=== PATIENT | female | born 1980 | race Caucasian/White ===

== ENCOUNTER → 2016-12-27 | Outpatient (CLI) | payer OTHER ==
[~2016-12-27] MED LIST: BIRTH CONTROL PILL; CELEXA10 MG PO; LEVAQUIN 5500 MG/TA1 PO; NAPROSYN500 MG PO; NORCO 325 MG-51 TAB PO; PHENERGAN 25 TA25 MG PO; PREDNISONE20 MG PO; TRINESSA1 TAB PO; ZOVIRAX400 MG PO
== END ==
LOC: COL.RAD 15:24
DX: M79.89 Other specified soft tissue disorders (principal)

== ENCOUNTER → 2016-12-28 | Outpatient (CLI) | payer OTHER | LOC: COL.LAB 16:24 | DX: M79.89 Other specified soft tissue disorders (principal); R06.02 Shortness of breath ==

== ENCOUNTER → 2017-04-20 | Outpatient (CLI) | payer OTHER | LOC: COL.VAS 13:59 | DX: M79.661 Pain in right lower leg (principal); Z86.711 Personal history of pulmonary embolism ==

== ENCOUNTER 2017-08-27 21:44 | Emergency (ER) | payer BC ==
[~2017-08-27] VITALS: Ht 167.6 cm; Wt 104.5 kg
[2017-08-27 21:47] VITALS: BP 140/94; TEMP 98.4
[2017-08-27] MEDS ORDERED: DOXYCYCLINE 10100 MG PO (21:52)
[2017-08-27] MEDS ORDERED: RITALIN10 MG PO (21:52)
[2017-08-27] MEDS ORDERED: WELLBUTRIN SR200 MG PO (21:53)
[2017-08-27] MEDS ORDERED: XOPENEX HF0.045 MG/A IH (21:53)
[2017-08-27 22:38] LABS: BASO # 0.1 (0.0-0.2); BASO % 0.5 % (0.0-2.0); EOS % 0.1 % (0-4.0); GRAN % 74.2 % (42.2-75.2); HEMOGLOBIN 12.7 g/dl (12.5-16.0); LYMPH # 2.1 (1.2-3.4); LYMPH % 19.8 % (20.0-51.0); MEAN CELL VOLUME 88 fl (80.0-100.0); MEAN CORPUSCULAR HEMOGLOBIN 31 pg (27.0-31.0); MEAN CORPUSCULAR HGB CONC 35 g/dl (33.0-37.0); MEAN PLATELET VOLUME 9.4 fl (7.4-10.4); MONO # 0.5 (0.1-0.6); MONO % 4.7 % (1.7-9.3); PLATELET COUNT 266 K/mm3 (130-400); RED BLOOD COUNT 4.17 M/mm3 (4.10-5.30); WHITE BLOOD COUNT 10.8 K/mm3 (4.8-10.8)
[2017-08-27 22:45] LABS: HEMATOCRIT 36.5 % (37.0-47.0)
[2017-08-27 22:54] LABS: ADJUSTED CALCIUM 9.3 mg/dL (8.4-10.2); ALANINE AMINOTRANSFERASE 26 U/L (9-52); ALBUMIN 4.2 gm/dL (3.5-5.0); ALKALINE PHOSPHATASE 100 U/L (50-136); ANION GAP 11 mmol/L (7-16); BILIRUBIN,TOTAL 0.6 mg/dL (0.0-1.0); BLOOD UREA NITROGEN 10 mg/dL (7-17); CALCIUM 9.5 mg/dL (8.4-10.2); CARBON DIOXIDE 21 mmol/L (22-30); CHLORIDE 106 mmol/L (98-107); CREATININE, serum 0.76 mg/dL (0.52-1.25); GLUCOSE 122 mg/dL (74-106); SODIUM 139 mmol/L (137-145); TOTAL PROTEIN 7.4 gm/dL (6.4-8.2)
[2017-08-27 23:06] LABS: B-TYPE NATRIURETIC PEPTIDE 16 pg/mL (0-125); TROPONIN-I < 0.012 ng/mL (0.000-0.034)
[2017-08-27 23:58] VITALS: PULSE 84
== END 2017-08-28 | disposition home or self-care (01) ==
LOC: COL.ER 21:44
PROVIDERS: Emergency Medicine
DX: J45.909 Unspecified asthma, uncomplicated (principal); J20.9 Acute bronchitis, unspecified
CPT/HCPCS: Q9967

== ENCOUNTER → 2018-04-11 | Outpatient (CLI) | payer BC ==
[~2018-04-11] MED LIST changes: +DOXYCYCLINE 10100 MG PO; +RITALIN10 MG PO; +WELLBUTRIN SR200 MG PO; +XOPENEX HF0.045 MG/A IH
== END ==
LOC: COL.VAS 13:06
DX: M79.89 Other specified soft tissue disorders (principal); M79.661 Pain in right lower leg

== ENCOUNTER 2018-11-25 19:28 | Emergency (ER) | payer BC ==
[~2018-11-25] VITALS: Ht 165.1 cm; Wt 113.6 kg
[2018-11-25] MEDS ORDERED: MIRENA52 MG IY (20:06)
[2018-11-25 21:33] LABS: BASO % 0.5 % (0.0-2.0); EOS % 0.6 % (0-4.0); GRAN % 78.8 % (42.2-75.2); HEMATOCRIT 41.1 % (37.0-47.0); HEMOGLOBIN 14.4 g/dl (12.5-16.0); LYMPH # 0.8 (1.2-3.4); LYMPH % 12.1 % (20.0-51.0); MEAN CELL VOLUME 87 fl (80.0-100.0); MEAN CORPUSCULAR HEMOGLOBIN 30 pg (27.0-31.0); MEAN CORPUSCULAR HGB CONC 35 g/dl (33.0-37.0); MEAN PLATELET VOLUME 9.1 fl (7.4-10.4); MONO # 0.5 (0.1-0.6); MONO % 7.7 % (1.7-9.3); PLATELET COUNT 174 K/mm3 (130-400); RED BLOOD COUNT 4.75 M/mm3 (4.10-5.30); REDCELL DISTRIBUTION WIDTH-CV 12.2 % (11.5-14.5)
[2018-11-25 21:42] LABS: ALBUMIN 4.3 gm/dL (3.5-5.0); BILIRUBIN,TOTAL 1.2 mg/dL (0.0-1.0); CALCIUM 9.1 mg/dL (8.4-10.2); CREATININE, serum 0.75 mg/dL (0.52-1.25); POTASSIUM 3.7 mmol/L (3.4-5.0); TOTAL PROTEIN 7.8 gm/dL (6.4-8.2)
[2018-11-25 23:53] LABS: COLLECTION METHOD CLEAN CATCH
[2018-11-26 00:01] LABS: MUCOUS Present /lpf; PH 5 (5-8); URINE APPEARANCE Clear; URINE BACTERIA None Seen /hpf; URINE BILIRUBIN Negative (NEGATIVE); URINE BLOOD 1+ (NEGATIVE); URINE COLOR Yellow; URINE GLUCOSE Negative (NEGATIVE); URINE KETONE 2+ (NEGATIVE); URINE LEUKOCYTE ESTERASE Negative (NEGATIVE); URINE NITRATE Negative (NEGATIVE); URINE PROTEIN(semi-quant) Negative (NEGATIVE); URINE UROBILINOGEN Negative (NEGATIVE)
[2018-11-26 00:36] VITALS: BP 137/85; PULSE 92; TEMP 99.9
== END 2018-11-26 00:45 | disposition home or self-care (01) ==
LOC: COL.ER 19:28
PROVIDERS: Emergency Medicine
DX: R19.7 Diarrhea, unspecified (principal); R11.2 Nausea with vomiting, unspecified; J45.909 Unspecified asthma, uncomplicated; Z98.890 Other specified postprocedural states
CPT/HCPCS: J2765; J3010; J7030; Q9967

== ENCOUNTER → 2020-02-20 | Outpatient (CLI) | payer BC, OTHER ==
[~2020-02-20] MED LIST changes: +MIRENA52 MG IY
== END ==
LOC: COL.LAB 19:15 → ZCOL.LAB 19:15
DX: R25.2 Cramp and spasm (principal); Z86.718 Personal history of other venous thrombosis and embolism

== ENCOUNTER → 2020-02-21 | Outpatient (CLI) | payer BC, OTHER | LOC: COL.VAS 09:24 | DX: M79.604 Pain in right leg (principal); M79.605 Pain in left leg ==

== ENCOUNTER 2021-07-27 21:27 | Observation (INO) | payer BC, OTHER ==
[~2021-07-27] VITALS: Ht 167.6 cm; Wt 108.9 kg
[~2021-07-27 21:27] MED LIST changes: -WELLBUTRIN SR200 MG PO; +WELLBUTRIN XL300 M1 PO
[2021-07-27 22:45] LABS: BASO # 0.1 (0.0-0.2); BASO % 0.8 % (0.0-2.0); EOS # 0.2 (0.0-0.7); EOS % 3.2 % (0-4.0); GRAN # 3.8 (1.4-6.5); GRAN % 51.9 % (42.2-75.2); HEMATOCRIT 38.9 % (37.0-47.0); HEMOGLOBIN 13.2 g/dl (12.5-16.0); LYMPH # 2.6 (1.2-3.4); LYMPH % 36.1 % (20.0-51.0); MEAN CELL VOLUME 90 fl (80.0-100.0); MEAN CORPUSCULAR HEMOGLOBIN 31 pg (27.0-31.0); MEAN CORPUSCULAR HGB CONC 34 g/dl (33.0-37.0); MEAN PLATELET VOLUME 8.8 fl (7.4-10.4); MONO # 0.6 (0.1-0.6); MONO % 7.7 % (1.7-9.3); PLATELET COUNT 249 K/mm3 (130-400); RED BLOOD COUNT 4.32 M/mm3 (4.10-5.30); REDCELL DISTRIBUTION WIDTH-CV 12.5 % (11.5-14.5)
[2021-07-27 22:54] LABS: COLLECTION METHOD CLEAN CATCH
[2021-07-27 23:00] LABS: ALANINE AMINOTRANSFERASE 25 U/L (4-34); ALBUMIN 4.7 gm/dL (3.5-5.0); ALKALINE PHOSPHATASE 83 U/L (50-136); ANION GAP 9 mmol/L (7-16); AST,SGOT 29 U/L (15-37); BILIRUBIN,TOTAL 0.9 mg/dL (0.0-1.0); BLOOD UREA NITROGEN 14 mg/dL (7-17); CALCIUM 9.6 mg/dL (8.4-10.2); CARBON DIOXIDE 23 mmol/L (22-30); CHLORIDE 106 mmol/L (98-107); GLUCOSE 111 mg/dL (74-106); LIPASE 80 U/L (23-300); POTASSIUM 4.1 mmol/L (3.4-5.0); SODIUM 138 mmol/L (137-145)
[2021-07-27 23:01] LABS: C-REACTIVE PROTEIN < 0.5 mg/dL (0.0-0.9)
[2021-07-27 23:21] LABS: MUCOUS Present /lpf; PH 5 (5-8); SQUAMOUS EPITHELIAL 20-50 /hpf; URINE APPEARANCE Cloudy; URINE BACTERIA Rare /hpf; URINE BILIRUBIN Negative (NEGATIVE); URINE BLOOD 2+ (NEGATIVE); URINE COLOR Amber; URINE GLUCOSE Negative (NEGATIVE); URINE KETONE Negative (NEGATIVE); URINE LEUKOCYTE ESTERASE Negative (NEGATIVE); URINE NITRATE Positive (NEGATIVE); URINE PROTEIN(semi-quant) 1+ (NEGATIVE); URINE RBC >50 /hpf; URINE UROBILINOGEN >=4.0 mg/dL (NEGATIVE)
[2021-07-28] MEDS ORDERED: ATIVAN 0.50.5 MG/TAB PO (07:11)
[2021-07-28 08:17] VITALS: BP 130/75; PULSE 58; TEMP 98.1
--- NOTE | 2021-07-28 10:12 | NUR ---
Initial visit; Patient thanked Commercial Real Estate Sales Manager for looking in on her this morning and offering to keep her in Commercial Real Estate Sales Manager's prayers.
--- NOTE | 2021-07-28 10:30 | NUR ---
PATIENT OFF FLOOR TO OR. CONSENT ON CHART.
--- NOTE | 2021-07-28 10:39 | NUR ---
IRINEO met with the patient to discuss discharge plan. The patient lives in [place] with her four children. She states that her youngest child is [id number]. She reports independence with ADLs and does not have any DME. The patient's PCP is Dr. Kasia Main and she receives her medications from [facility]. She reports no difficulties obtaining her meds. The patient does not have a DPOA-HC. The patient states that she is from her , but they are not . She has three children over the age of 18: Anil, Julissa, and Conner. IRINEO informed the patient that her would be her legal next of kin, since they are not . The patient verbalized understanding. She states that she would not want him to make any decisions for her and would want her mother, Concepción (ph#[phone]), as her decision maker. IRINEO informed her that she would need to complete a DPOA-HC, designating her mother and that we could complete the form here. The patient was not interested in completing a DPOA-HC at this time, but states that she will take a form. IRINEO provided. The patient plans to return home with her children upon discharge. No additional needs at this time. *Discharge plan: home with children*
[2021-07-28] MEDS ORDERED: PYRIDIUM 100MG100 MG PO (11:56)
[2021-07-28] MEDS ORDERED: LEVAQUIN 5500 MG/TA1 PO (11:56)
[2021-07-28] MEDS ORDERED: NORCO 325 MG-51 TAB PO (11:57)
[2021-07-28 12:40] VITALS: BP 125/67; PULSE 64; TEMP 99
--- NOTE | 2021-07-28 12:40 | NUR ---
PATIENT BACK FROM SURGERY, LEFT STENT PLACED, NO STONE FOUND. PATIENT RESTING UP IN BED WITH NO COMPLAINTS AND IS VERY DROWSY. VSS. HEAD TO TOE ASSESSMENT WNL. CALL LIGHT IN REACH. PATIENT TO DISCHARGE LATER TODAY.
[2021-07-28 12:55] VITALS: BP 124/74; PULSE 64
[2021-07-28 13:05] VITALS: TEMP 99
[2021-07-28 13:10] VITALS: BP 134/68; PULSE 62
--- NOTE | 2021-07-28 16:15 | NUR ---
PATIENT STILL C/O A SEVER PAIN IN LEFT FLANK THAT IS UNRELIEVED FROM ROXICODONE. PATIENT REFUSED TYLENOL. NOTIFIED UROLOGY. IN OR, PATIENT HAD ALREADY PASSED STONE BUT DID HAVE SWELLING AND IRRITATION. SEE ORDERS FOR NOW DOSE OF IV TORADOL.
--- NOTE | 2021-07-28 17:45 | NUR ---
PATIENT DISCHARGING HOME VIA WC TO PERSONAL VEHICLE WITH MOTHER. GAVE DISCHARGE INSTRUCTIONS, E-SCRIPTS SENT, AND DISCUSSED F/U APT. ANSWERED QUESTIONS/CONCERNS. DC'D RIGHT AC IV AND COVERED SITE WITH GAUZE & COBAN. PATIENT IS DRESSED, PACKED & DISCHARGED.
== END 2021-07-28 17:45 | disposition home or self-care (01) ==
LOC: COL.ER 21:27 → SURG 07-28 01:01
PROVIDERS: Nurse Practitioner Primary Care; ADMIT Urology
DX: N13.2 Hydronephrosis with renal and ureteral calculous obstruction (principal); J45.909 Unspecified asthma, uncomplicated; F90.9 Attention-deficit hyperactivity disorder, unspecified type; F32.9 Major depressive disorder, single episode, unspecified; F41.9 Anxiety disorder, unspecified; Z79.899 Other long term (current) drug therapy
CPT/HCPCS: C1769; C2617; G0378; J0690; J0696; J1100; J1885; J2270; J2405; J2550; J2704; J3010; J7030; Q9967

== ENCOUNTER 2021-08-07 16:01 | Observation (INO) | payer BC, OTHER ==
[~2021-08-07] VITALS: Ht 167.6 cm; Wt 109.1 kg
[~2021-08-07 16:01] MED LIST changes: +ATIVAN 0.50.5 MG/TAB PO; +PYRIDIUM 100MG100 MG PO
[2021-08-07 18:05] LABS: COLLECTION METHOD CLEAN CATCH
[2021-08-07 18:07] LABS: BASO # 0.1 (0.0-0.2); BASO % 0.8 % (0.0-2.0); EOS # 0.2 (0.0-0.7); GRAN # 5.1 (1.4-6.5); GRAN % 65.3 % (42.2-75.2); HEMOGLOBIN 12.7 g/dl (12.5-16.0); LYMPH # 1.8 (1.2-3.4); LYMPH % 23.1 % (20.0-51.0); MEAN CELL VOLUME 87 fl (80.0-100.0); MEAN CORPUSCULAR HEMOGLOBIN 30 pg (27.0-31.0); MEAN CORPUSCULAR HGB CONC 35 g/dl (33.0-37.0); MEAN PLATELET VOLUME 8.8 fl (7.4-10.4); MONO # 0.6 (0.1-0.6); MONO % 7.5 % (1.7-9.3); PLATELET COUNT 251 K/mm3 (130-400); RED BLOOD COUNT 4.18 M/mm3 (4.10-5.30)
[2021-08-07 18:13] LABS: HEMATOCRIT 36.4 % (37.0-47.0)
[2021-08-07 18:20] LABS: MUCOUS Present /lpf; PH 6 (5-8); URINE APPEARANCE Hazy; URINE BACTERIA Rare /hpf; URINE BILIRUBIN Negative (NEGATIVE); URINE BLOOD 3+ (NEGATIVE); URINE COLOR Yellow; URINE GLUCOSE Negative (NEGATIVE); URINE KETONE Negative (NEGATIVE); URINE LEUKOCYTE ESTERASE 2+ (NEGATIVE); URINE NITRATE Negative (NEGATIVE); URINE PROTEIN(semi-quant) Negative (NEGATIVE); URINE RBC 0-2 /hpf; URINE UROBILINOGEN Negative (NEGATIVE)
[2021-08-07 18:34] LABS: C-REACTIVE PROTEIN 0.3 mg/dL (0.00-0.50); CALCIUM 9.2 mg/dL (8.4-10.2); CREATININE, serum 1.08 mg/dL (0.57-1.11); POTASSIUM 3.9 mmol/L (3.5-4.5); TOTAL PROTEIN 7.3 gm/dL (6.2-8.1)
[2021-08-07 18:49] LABS: BILIRUBIN,TOTAL 0.7 mg/dL (0.2-1.2)
[2021-08-07] MEDS ORDERED: LEVAQUIN 5500 MG/TA1 PO (21:49)
[2021-08-07] MEDS ORDERED: PERCOCET 325 MG1 TA2 PO (21:50)
[2021-08-07] MEDS ORDERED: MOTRIN 600600 MG/TAB PO (21:51)
--- NOTE | 2021-08-07 22:15 | NUR ---
PT UP TO VOID, 200CC YELLOW URINE. AMBULATES IN HALLWAY WITH STEADY GAIT, DENIES PAIN. HAS TAKEN ICE CHIPS, JUICE AND JELLO WITHOUT NAUSEA OR VOMITING. WANTS TO GO HOME.
--- NOTE | 2021-08-07 22:32 | NUR ---
SPOKE WITH LALA HUNT FOR PT TO DISCHARGE HOME TONIGHT.
[2021-08-07 23:10] VITALS: BP 142/79; PULSE 64; TEMP 98.5
--- NOTE | 2021-08-07 23:10 | NUR ---
PT ADMITTED TO ROOM 343 FROM PACU FOR POST OP LAP APPY. O2 AT 2LNC. PAIN EVEL 05/16 SEE MAR FOR PAIN MED GIVEN. ASSISTED TO BSC TO VOID. BACK TO BED. VSS. CALL LIGHT IN REACH.
[2021-08-07 23:20] VITALS: BP 145/87; PULSE 59
[2021-08-07 23:35] VITALS: BP 146/79; PULSE 61
[2021-08-07 23:45] VITALS: BP 134/79; PULSE 59
[2021-08-08] VITALS (9 sets, daily range): BP systolic 116–157; BP diastolic 61–78; PULSE 58–70; TEMP 97.6–99.4
--- NOTE | 2021-08-08 00:30 | NUR ---
GAVE DILAUDID FOR ABD INCIASIONAL PAIN. LEVEL 7/10
--- NOTE | 2021-08-08 00:36 | NUR ---
RESTING NOW. NO DISTRESS.
--- NOTE | 2021-08-08 01:49 | NUR ---
PT AWAKE AT MY PRESENCE. PT ASKING WHEN DILAUDID IS GOING TO START WORKING. VERY DROWSY. HAS BEEN UP TO BSC X2 SINCE RETURN FROM PACU TO VOID. NO NAUSEA. TOO SOON FOR MORE DILAUDID. SCD'D ON.
--- NOTE | 2021-08-08 03:38 | NUR ---
PT RESTING QUIETLY. NO DISTRESS AT THIS TIME. VSS.
--- NOTE | 2021-08-08 08:00 | NUR ---
Patient in bed resting. Alert and oriented x 3. Assessment complete. Stated pain to incision sites /, medications given per orders. Patient up to restroom with steady gait, educated on splinting incision. Lap sites x 3 with edges well approximated. Patient denies additional needs at this time.
--- NOTE | 2021-08-08 10:26 | NUR ---
Patient up with SBA ambulating in halls >100 ft
--- NOTE | 2021-08-08 13:24 | NUR ---
Patient states she is having mild nausea after ambulating in room. Medications given per orders. Denies additional needs at this time.
[2021-08-08 13:40] LABS: BASO % 0.2 % (0.0-2.0); EOS % 0.1 % (0-4.0); GRAN # 9.3 (1.4-6.5); GRAN % 83.4 % (42.2-75.2); HEMATOCRIT 33.3 % (37.0-47.0); LYMPH % 9.4 % (20.0-51.0); MEAN CELL VOLUME 86 fl (80.0-100.0); MEAN CORPUSCULAR HEMOGLOBIN 31 pg (27.0-31.0); MEAN CORPUSCULAR HGB CONC 36 g/dl (33.0-37.0); MEAN PLATELET VOLUME 8.9 fl (7.4-10.4); MONO # 0.7 (0.1-0.6); MONO % 6.5 % (1.7-9.3); PLATELET COUNT 274 K/mm3 (130-400); RED BLOOD COUNT 3.86 M/mm3 (4.10-5.30)
[2021-08-08 14:20] LABS: ALBUMIN 3.8 gm/dL (3.5-5.0); BILIRUBIN,TOTAL 0.7 mg/dL (0.2-1.2); CALCIUM 9.2 mg/dL (8.4-10.2); CREATININE, serum 0.75 mg/dL (0.57-1.11); POTASSIUM 3.9 mmol/L (3.5-4.5)
--- NOTE | 2021-08-08 14:22 | NUR ---
Plan is to return home. Patient reports that she has a DTR who will support her recovery. Patient shares that her mother Concepción is her EMR contact . Patient reports that her PCP is Dr. Salazar and obtains medications at [facility]. Patient shares that she also see Dr. Polanco. Patient reports that her pain is at a 5 out of 10. Educated on services available through case management. Patient reports that she wants to have pain managament discussed and having a bowel movement as she feels nothing is moving. WF
--- NOTE | 2021-08-08 18:19 | NUR ---
Patient doing well throughout the day. Encouraged increase activity. Pain medications given for abdominal pain 7/10 throughout the day, per orders. Patient denies needs at this time; tolerating diet. Denies further needs at this time.
[2021-08-09] VITALS: BP 117/64; PULSE 52; TEMP 98.2
[2021-08-09 03:42] VITALS: BP 106/62; PULSE 55; TEMP 97.7
--- NOTE | 2021-08-09 04:56 | NUR ---
PT CALLS FOR ASSISTANCE TO GET IN AND OUT OF BED TO USE RESTROOM, WALKED IN MOY X1 THIS SHIFT, REPORTS PAIN 8/10, PERCOCET GIVEN X2. PHENERGAN GIVEN X1 FOR REPORTED NAUSEA.
[2021-08-09 08:56] VITALS: BP 119/72; PULSE 50; TEMP 98.5
--- NOTE | 2021-08-09 10:00 | NUR ---
Patient alert and oriented, answers questions appropriately. See assessment. Abdomen soft, tender, non distended. Bowel sounds active x4 quads. +Flatus. +Bowel movement. Lap sites to abdomen with edges well approximated, no redness or drainage noted. Post op exercises reviewed with patient. Patient needs encouragement to ambulate in halls, get out of bed. No other c/o at this time.
[2021-08-09] MEDS ORDERED: ZOFRAN ODT4 MG PO (10:45)
[2021-08-09] MEDS ORDERED: PROMETHAZINE12.5 M5 PO (10:45)
[2021-08-09] MEDS ORDERED: LEVAQUIN 5500 MG/TA1 PO (10:49)
[2021-08-09] MEDS ORDERED: Work Release (10:59)
[2021-08-09 11:17] VITALS: BP 139/73; PULSE 76; TEMP 99.1
--- NOTE | 2021-08-09 13:43 | NUR ---
Discharge instructions reviewed with patient, verbalized understanding. Discharged via wheelchair to auto/home with parent at 1300.
== END 2021-08-09 13:00 | disposition home or self-care (01) ==
LOC: COL.ER 16:01 → SURG 19:42
PROVIDERS: Nurse Practitioner Primary Care; ADMIT Surgery
DX: K35.80 Unspecified acute appendicitis (principal); J45.909 Unspecified asthma, uncomplicated; N39.0 Urinary tract infection, site not specified; G43.909 Migraine, unspecified, not intractable, without status migrainosus; F90.9 Attention-deficit hyperactivity disorder, unspecified type; F41.9 Anxiety disorder, unspecified; Z79.891 Long term (current) use of opiate analgesic; Z79.899 Other long term (current) drug therapy
CPT/HCPCS: G0378; J1100; J1170; J1885; J2405; J2550; J2704; J3010; J7030; J7120; Q9967

== ENCOUNTER 2021-08-25 12:56 | Emergency (ER) | payer BC, OTHER ==
[~2021-08-25] VITALS: Ht 167.6 cm; Wt 109.1 kg
[~2021-08-25 12:56] MED LIST changes: +MOTRIN 600600 MG/TAB PO; +PERCOCET 325 MG1 TA2 PO; +PROMETHAZINE12.5 M5 PO; +Work Release; +ZOFRAN ODT4 MG PO
[2021-08-25 13:46] LABS: BASO % 0.6 % (0.0-2.0); EOS # 0.1 K/mm3 (0.0-0.7); EOS % 0.9 % (0-4.0); GRAN # 5.5 K/mm3 (1.4-6.5); GRAN % 78.5 % (42.2-75.2); HEMATOCRIT 36.7 % (37.0-47.0); HEMOGLOBIN 12.7 g/dl (12.5-16.0); LYMPH # 0.9 K/mm3 (1.2-3.4); LYMPH % 12.2 % (20.0-51.0); MEAN CELL VOLUME 88 fl (80.0-100.0); MEAN CORPUSCULAR HEMOGLOBIN 31 pg (27.0-31.0); MEAN CORPUSCULAR HGB CONC 35 g/dl (33.0-37.0); MEAN PLATELET VOLUME 9.1 fl (7.4-10.4); MONO # 0.5 K/mm3 (0.1-0.6); MONO % 7.5 % (1.7-9.3); PLATELET COUNT 222 K/mm3 (130-400); RED BLOOD COUNT 4.15 M/mm3 (4.10-5.30)
[2021-08-25 14:03] LABS: ALBUMIN 4.2 gm/dL (3.5-5.0); BILIRUBIN,TOTAL 0.9 mg/dL (0.2-1.2); CALCIUM 9.6 mg/dL (8.4-10.2); CREATININE, serum 0.74 mg/dL (0.57-1.11); POTASSIUM 4.3 mmol/L (3.5-4.5); TOTAL PROTEIN 7.5 gm/dL (6.2-8.1)
[2021-08-25] MEDS ORDERED: AMOXICILLIN 8751 TAB PO (15:35)
[2021-08-25 16:35] VITALS: BP 137/90; PULSE 61; TEMP 98.4
== END 2021-08-25 16:45 | disposition home or self-care (01) ==
LOC: COL.ER 12:56
PROVIDERS: Emergency Medicine
DX: K52.9 Noninfective gastroenteritis and colitis, unspecified (principal); F90.9 Attention-deficit hyperactivity disorder, unspecified type; N83.201 Unspecified ovarian cyst, right side; Z79.899 Other long term (current) drug therapy
CPT/HCPCS: C9113; J2270; J2405; J7030; Q9967

== ENCOUNTER 2021-08-28 05:47 | Day surgery (SDC) | payer BC, OTHER ==
[~2021-08-28] VITALS: Ht 167.6 cm; Wt 104.9 kg
[~2021-08-28 05:47] MED LIST changes: +AMOXICILLIN 8751 TAB PO
[2021-08-28] MEDS ORDERED: MAGNESIUM ELEM300 MG PO (06:06)
[2021-08-28] MEDS ORDERED: AIRBORNE EFFER1 EAC1 PO (06:06)
[2021-08-28 06:14] VITALS: BP 144/93; PULSE 76; TEMP 98.1
[2021-08-28 07:30] VITALS: BP 128/88; PULSE 67
--- NOTE | 2021-08-28 07:30 | NUR ---
Patient returns to bay 2 per cart and transfers from cart to recliner with two person assist. IV fluids infusing. Allowed to rest and mother in the room. Call light in reach.
[2021-08-28 07:45] VITALS: BP 128/88; PULSE 61
--- NOTE | 2021-08-28 07:45 | NUR ---
Continues to sip on water. Has been resting with eyes closed. IV fluids infusing.
--- NOTE | 2021-08-28 07:55 | NUR ---
Dr. Fraire here to talk with the patient and all questions answered.
[2021-08-28 08:00] VITALS: BP 133/87; PULSE 66
--- NOTE | 2021-08-28 08:00 | NUR ---
Complains of mild nausea. Will given Zofran prior to discharge
--- NOTE | 2021-08-28 08:03 | NUR ---
Zofran given and IV bolus of 200cc,s.
--- NOTE | 2021-08-28 08:23 | NUR ---
States that she feels better. IV discontinued and dresses self.
--- NOTE | 2021-08-28 08:30 | NUR ---
Dismissal instructions given and signed. Dismissed to home driven by mother and taken to the front door per wheelchair and dismissed to home.
== END 2021-08-28 08:30 | disposition home or self-care (01) ==
LOC: SDCO 05:47
DX: K52.9 Noninfective gastroenteritis and colitis, unspecified (principal); R19.5 Other fecal abnormalities; R10.9 Unspecified abdominal pain; G43.909 Migraine, unspecified, not intractable, without status migrainosus; J45.909 Unspecified asthma, uncomplicated; E55.9 Vitamin D deficiency, unspecified; F41.9 Anxiety disorder, unspecified; F32.9 Major depressive disorder, single episode, unspecified; Z86.718 Personal history of other venous thrombosis and embolism; Z79.899 Other long term (current) drug therapy; Z86.711 Personal history of pulmonary embolism
CPT/HCPCS: J2405; J2704; J7030

== ENCOUNTER 2021-10-09 10:45 | Outpatient (CLI) | payer BC, OTHER ==
[~2021-10-09] VITALS: Ht 167.6 cm; Wt 104.5 kg
[2021-10-09] VITALS (7 sets, daily range): BP systolic 129–150; BP diastolic 77–93; PULSE 69–85; TEMP 97.9
[~2021-10-09 10:45] MED LIST changes: +AIRBORNE EFFER1 EAC1 PO; +MAGNESIUM ELEM300 MG PO
== END 2021-10-09 13:58 ==
LOC: EUO 10:45
DX: J02.9 Acute pharyngitis, unspecified (principal)
CPT/HCPCS: M0245

== ENCOUNTER 2021-10-23 13:14 | Emergency (ER) | payer BC, OTHER ==
[~2021-10-23] VITALS: Ht 165.1 cm; Wt 104.5 kg
[2021-10-23 13:24] VITALS: TEMP 98
[2021-10-23 14:26] LABS: BASO % 0.6 % (0.0-2.0); EOS # 0.1 K/mm3 (0.0-0.7); EOS % 1.9 % (0.0-4.0); GRAN # 4.4 K/mm3 (1.4-6.5); GRAN % 67.8 % (42.2-75.2); HEMOGLOBIN 12.9 g/dl (12.5-16.0); LYMPH # 1.4 K/mm3 (1.2-3.4); LYMPH % 22.3 % (20.0-51.0); MEAN CELL VOLUME 86 fl (80.0-100.0); MEAN CORPUSCULAR HEMOGLOBIN 30 pg (27-31); MEAN CORPUSCULAR HGB CONC 35 g/dl (33.0-37.0); MEAN PLATELET VOLUME 9.1 fl (7.4-10.4); MONO # 0.5 K/mm3 (0.1-0.6); MONO % 7.1 % (1.7-9.3); PLATELET COUNT 251 K/mm3 (130-400); RED BLOOD COUNT 4.28 M/mm3 (4.10-5.30); REDCELL DISTRIBUTION WIDTH-CV 12.2 % (11.5-14.5)
[2021-10-23 14:27] LABS: HEMATOCRIT 36.7 % (37.0-47.0)
[2021-10-23 14:37] LABS: ALBUMIN 3.9 gm/dL (3.5-5.0); CALCIUM 8.9 mg/dL (8.4-10.2); CREATININE, serum 0.76 mg/dL (0.57-1.11); POTASSIUM 3.8 mmol/L (3.5-4.5); TOTAL PROTEIN 7.3 gm/dL (6.2-8.1)
[2021-10-23 17:12] VITALS: BP 141/90; PULSE 70
[2021-10-23] MEDS ORDERED: ELIQUIS 2.5 PO (17:30)
== END 2021-10-23 17:12 | disposition home or self-care (01) ==
LOC: COL.ER 13:14
PROVIDERS: Nurse Practitioner Family
DX: R06.02 Shortness of breath (principal); U09.9 Post COVID-19 condition, unspecified; M79.604 Pain in right leg; M79.605 Pain in left leg; R79.1 Abnormal coagulation profile; I10 Essential (primary) hypertension; Z86.711 Personal history of pulmonary embolism; Z79.01 Long term (current) use of anticoagulants; Z79.899 Other long term (current) drug therapy
CPT/HCPCS: J1650; Q9967

== ENCOUNTER → 2021-10-26 | Outpatient (CLI) | payer BC, OTHER ==
[~2021-10-26] MED LIST changes: +ELIQUIS 2.5 PO
== END ==
LOC: COL.VAS 07:11
DX: M79.604 Pain in right leg (principal); M79.605 Pain in left leg; R06.02 Shortness of breath

== ENCOUNTER → 2022-03-12 | Outpatient (CLI) | payer OTHER | LOC: COL.RAD 13:25 | DX: R22.2 Localized swelling, mass and lump, trunk (principal) ==